=== PATIENT | male | born 1985 | race Caucasian/White ===

== ENCOUNTER 2023-01-31 10:18 | Emergency (ER) | payer SELFPAY ==
[2023-01-31] MEDS ORDERED: Ondansetron PF 4 MG/2 ML Vial ONE (10:29)
== END 2023-01-31 11:07 | disposition home or self-care (01) ==
LOC: BURERS 10:18
DX: A09 Infectious gastroenteritis and colitis, unspecified (principal); F17.210 Nicotine dependence, cigarettes, uncomplicated
CPT/HCPCS: 96374; J2405